=== PATIENT | male | born 1985 | race Two or more races ===

== ENCOUNTER → 2020-06-25 | Outpatient (CLI) | payer OTHER | END | disposition home or self-care (01) | LOC: OFIC 805 14:30 | PROVIDERS: ATTEND Otolaryngology Otology & Neurotology | DX: H69.82 Other specified disorders of Eustachian tube, left ear (principal); J01.80 Other acute sinusitis; H93.8X2 Other specified disorders of left ear ==

== ENCOUNTER → 2020-08-03 | Outpatient (CLI) | payer OTHER | END | disposition home or self-care (01) | LOC: OFIC 805 10:18 | PROVIDERS: ATTEND Otolaryngology Otology & Neurotology | DX: H69.82 Other specified disorders of Eustachian tube, left ear (principal); J01.80 Other acute sinusitis; H93.8X2 Other specified disorders of left ear ==